=== PATIENT | male | born 1945 | race Caucasian/White ===

== ENCOUNTER 2017-03-01 09:59 | Day surgery (SDC) | payer MEDICARE ==
[2017-03-01] VITALS (7 sets, daily range): BP systolic 104–130; BP diastolic 62–77; PULSE 60–69; RESP 16; TEMP 97.4–99.1; O2SAT 97–98
[~2017-03-01] VITALS: Ht 167.6 cm; Wt 75.0 kg
[2017-03-01] MEDS ORDERED: ASPI81TA5 PO (10:40)
[2017-03-01] MEDS ORDERED: LISI-515 PO (10:40)
[2017-03-01] MEDS ORDERED: ATOR10TA15 PO (10:40)
[2017-03-01] MEDS ORDERED: LACTATED RINGER'S 1000 ML IV PRN (11:00)
[2017-03-01] MEDS ORDERED: POVIDONE IODINE 5% (ANTISEPSIS KIT) 4 APPLICATIONS EACH NARE PRN (11:00)
[2017-03-01] MEDS ORDERED: SODIUM CHLORID 0.9% 500 ML IV PRN (11:00)
[2017-03-01] MEDS ORDERED: METOPROLOL TARTRATE 25 MG TAB PO PRN (11:00)
[2017-03-01] MEDS: NS 1000 ML IV SCH (11:00)
[2017-03-01] MEDS ORDERED: NO Heparin, Lovenox, Coumadin at least 12 hours prior to procedure. PRN (11:00)
[2017-03-01] MEDS ORDERED: Hold AM Insulin & AM Hypoglycemic medications in diabetic patients PRN (11:00)
[2017-03-01] MEDS ORDERED: VANCOMYCIN 1000 MG/NS 250 ML IV SCH ×2 (11:00)
[2017-03-01] MEDS ORDERED: MUPIROCIN 2% OINT 1 APPLIC/GM SYR NASAL SCH (11:00)
[2017-03-01] MEDS ORDERED: POVIDONE IODINE 5% (ANTISEPSIS KIT) 4 APPLICATIONS EACH NARE SCH (11:00)
[2017-03-01] MEDS ORDERED: CHLORHEXIDINE GLUCONATE 2 % 1 PACK (2 CLOTHS) TOPICAL SCH (11:00)
[2017-03-01] MEDS ORDERED: CHLORHEXIDINE GLUCONATE 2 % 1 PACK (2 CLOTHS) TOPICAL PRN (11:00)
[2017-03-01] MEDS ORDERED: INSULIN HUMAN REGULAR 1,000 UNITS/10 ML VIAL SQ PRN (11:00)
[2017-03-01] MEDS ORDERED: ceFAZolin 2 GM PREMIX 50 ML IV SCH (11:00)
[2017-03-01 11:06] LABS: AUTOMATED NEUTROPHIL # 5.5 TH/MM3 (1.8-7.7); BASOPHIL % 0.6 % (0.0-2.0); EOSINOPHIL # 0.2 TH/MM3 (0-0.4); EOSINOPHIL % 2.6 % (0.0-4.0); HEMATOCRIT 44.3 % (39.0-51.0); HEMO FLAGS DIFF FINAL; LYMPH % 22.7 % (9.0-44.0); LYMPHOCYTE # 1.9 TH/MM3 (1.0-4.8); MEAN CELL VOLUME 89.7 FL (80.0-100.0); MEAN CORPUSCULAR HEMOGLOBIN 30.3 PG (27.0-34.0); MEAN CORPUSCULAR HGB CONC 33.7 % (32.0-36.0); NEUT % 66.1 % (16.0-70.0); PLATELET COUNT 170 TH/MM3 (150-450); RED BLOOD COUNT 4.94 MIL/MM3 (4.50-5.90); RED CELL DISTRIBUTION WIDTH 13.4 % (11.6-17.2); WHITE BLOOD COUNT 8.2 TH/MM3 (4.0-11.0)
[2017-03-01 11:16] LABS: INTERNATIONAL NORMALIZED RATIO 0.9 RATIO; PROTHROMBIN TIME - PATIENT 10.4 SEC (9.8-11.6)
[2017-03-01 11:22] LABS: BICARBONATE 28.1 MEQ/L (21.0-32.0)
[2017-03-01] MEDS ORDERED: MIDAZOLAM HCL 2 MG/2 ML VIAL ONE (12:48)
[2017-03-01] MEDS ORDERED: PROPOFOL 200 MG/20 ML AMP IV ONE (13:18)
[2017-03-01] MEDS ORDERED: VANCOMYCIN 500 MG VIAL ONE (13:31)
[2017-03-01] MEDS ORDERED: LIDOCAINE HCL 2% 50 ML VIAL ONE (13:31)
--- NOTE | 2017-03-01 15:22 | CATHPROC ---
[place] HIS Report Study Information Study Number Admission Scheduled Start Study Start [id number] Mar 01 2017 9:59AM 03/01/2017 Mar 01 2017 12:45PM [place] Service Cardiac Pacer/ICD Admit Source Facility Department Other [facility] Physician and Clinical Staff Initial MD Covarrubias, Cammie Sandstone Inspector Repairer Bella Moreno RCIS Other Anesthesia, CIVIL DESIGN TECHNICIAN Recorder Dee Bowie,RN Scrub Reagan, Kati,TURNER AND FORMER AUTOMATIC TECH2 Procedures Performed Procedure Lead Insertion Equipment Time Family Preservation Worker Description Size Mfg Part Number Used/Scraped 14:36 Design A MEDICAL DRAPE, [place] X-RAY 12X17 12X17 D-100 *[id number] Used 14:21 ANGIO-DYNAMICS LEAD, TENDRIL MRI 46CM [id number] Used MPIS-502-10.0- INTRODUCER SET, 14:36 [employer]. FR 5 SC-NT-U-SST Used MICROPUNCTURE, STIFFENED *[id number] MPIS-502-10.0- INTRODUCER SET, 14:36 [employer]. FR 5 SC-NT-U-SST Used MICROPUNCTURE, STIFFENED *[id number] 14:36 Odeeo DRAPE, IOBAN 2 [id number] 26cm x 20cm Used *[id number] TP-1103 14:36 Odeeo SUTURE, STRIP PLUS 1/2" * Used *[id number] 14:36 MEDLINE PACER ADHESIVE, MASTISOL 2/3CC 2/3CC 0523-48 Used 14:36 MEDLINE PACER LEA, LIMB * 2530 *[id number] Used [id number] 14:36 MEDLINE PACER PACK, PACER CUSTOM * Used *[id number] 14:36 MEDLINE PACER PEN, SKIN DUAL W/ RULER * Used *[id number] 13:50 Celergo PACER SAFE SHEATH, FR8, 13CM FR 8 [id number] Used 13:50 [employer] MEDICAL PACER SAFE SHEATH, FR8, 13CM FR 8 CLS-1008 Used PROBE COVER, STERILE [id number] 14:36 [employer] MEDICAL * Used ULTRASOUND W/ GEL *[id number] 13:46 Needle Sponge Count 2 22 Used 13:51 Needle Sponge Count 30 1 Used 13:51 Needle Sponge Count 5 5 Used [id number] *[id number] SUTURE, 0 ETHIBOND [CT1] (CX21D), 8pk SUTURE, 2-0 VICRYL [CT1] (YQS648Y) SUTURE, 2-0 VICRYL [CT1] ([id number]) SUTURE, 4-0 VICRYL [PS2] (OSU655K) [id number] 14:36 [employer]ET,WARM AIR CCL * Used *[id number] LEAD, TENDRIL ACTIVE FIXATION 14:33 [employer] 52CM [id number] Used BIPOLAR PACEMAKER, JEM MENDEZ 14:54 [employer] [id number] Used MRI [facility] PAD, ELECTROSURGICAL 14:36 * [id number] *[id number] Used SURGICAL GROUNDING ORANGE 2503-3432 14:36 [employer] REGINALDO. ELECTRODE, PRO-PADZ BIPHASIC * Used *91745 Equipment Model, Serial, Lot Number and Expiration Data Description Model Number Serial Number Lot Number Expiration Date LEAD, TENDRIL ACTIVE FIXATION [id number] 52CM [id number] 06-15-2017 BIPOLAR LEAD, TENDRIL MRI [id number] 46CM [id number] 06-15-2017 PACEMAKER, JEM ROWLAND RF MRI [id number] 08-16-2018 Medication Medication Total Dose (Bolus/Oral) Medication Total Dosage/Unit 2% XYLOCAINE 50 mL Medications (Bolus/Oral) Medication Time Given Dosage/Unit Administered By Reason 2% XYLOCAINE 03/01/2017 2:08:00 PM 50 mL Cammie Covarrubias 50 mL 2% XYLOCAINE given in lab by Cammie Covarrubias in Right shoulder via Subcutaneous. Ordered by Cammie Celaya. RT UPPER CHEST Medication (Drip) Medication Time Given Dosage/Unit Concentration/Unit Diluent (ml) Solution ANCEF 03/01/2017 1:22:00 PM 2 g 2 g ANCEF given in lab by Anesthesia, CIVIL DESIGN TECHNICIAN in Left Antecubital via Peripheral IV. Ordered by Cammie Covarrubias. VANCOMYCIN DRIP 03/01/2017 1:22:50 PM 1 g 1 g VANCOMYCIN DRIP given in lab by Anesthesia, CIVIL DESIGN TECHNICIAN in Right Antecubital via Peripheral IV. Ordered by Cammie Covarrubias. Initial Case Assessment Cardiovascular HR Rhythm NIBP Chest Pain 76 SR 128/72 0 Edema Present Skin color Skin None Normal Warm Dry Circulatory - Right Pulses Dorsalis Pedis 1 Scale (0,1,2,3,4,d) Circulatory - Left Pulses Dorsalis Pedis 1 Scale (0,1,2,3,4,d) Neurological State Oriented to time-place- Alert Moves all extremities person Respiration - General Respiration Rate SpO2 (%) (B/min) 18 98 Final Case Assessment Cardiovascular HR Rhythm NIBP Chest Pain 76 SR 106/72 0 Edema Present Skin color Skin None Normal Warm Dry Circulatory - Right Pulses Dorsalis Pedis 1 Scale (0,1,2,3,4,d) Circulatory - Left Pulses Dorsalis Pedis 1 Scale (0,1,2,3,4,d) Neurological State Oriented to time-place- Alert Moves all extremities person Respiration - General Respiration Rate SpO2 (%) O2 (lpm) (B/min) 18 100 2 Chronological Log Time Study Chronological Log 13:08:00 Patient arrived via Bed. 13:08:10 Patient Name, D.O.B, / Armband Verified By R.N. Verbal Stimulation=~VERBAL~ Physical Stimulation=~PHYSICAL~ Airway=~AIRWAY~ Respiration=~RESPIR ATION~ 13:08:15 TOTAL=~TOTAL~. (0=absent, 1=limited, 2=present) Anesthesia at bedside. Assumes care of patient. LINDSAY munoz RECORDS FOR ALL MEDS AND VITALS DU RING 13:08:50 PROCEDURE 13:10:12 Patient has been NPO for More than 6Hrs. 13:11:00 Skin Breakdown- NONE PER PATIENT 13:12:00 Patient Warmer Placed on the Table. 13:12:20 Disposable Defibrillator Pads Placed On Patient. 13:13:05 Abdulaziz Prominences Protected 13:15:00 A # 20 IV was noted in the Antecubital (right). Grade = 0 13:15:01 A # 20 IV was noted in the Antecubital (left). Grade = 0 13:15:10 History and physical on the chart or being dictated. 13:22:00 2 g ANCEF given in lab by Anesthesia, CIVIL DESIGN TECHNICIAN in Left Antecubital via Peripheral IV. Ordered b y Cammie Covarrubias. 1 g VANCOMYCIN DRIP given in lab by Anesthesia, CIVIL DESIGN TECHNICIAN in Right Antecubital via Peripheral IV. Or dered by Marci, 13:22:50 Cammie. Assessment: Initial Case, HR=76 BPM, Rhythm=SR, CPSR=853/72 mmhg, Chest Pain=0, Edema=None, Col or=Normal, Skin = Warm, Dry Right Pulses: Henrique Ped=1 13:38:56 Left Pulses: Henrique Ped=1 Neurological: State=Alert, Ox3, THAKUR Respiration: Resp=18 B/min, SpO2=98 % 13:40:01 Right Upper Chest Prepped Times Two. 13:45:18 Reference ECG taken 13:45:28 Bovie ground pad applied to: RIGHT THIGH 13:45:37 2% CHLORHEXIDINE GLUCONATE WASH AND NASAL SWIPE DONE PRIOR TO PROCEDURE. First Sponge And Instrument Count Done by Kati Kirk, TURNER AND FORMER AUTOMATIC TECH2. 13:45:55 Hypo's: 5, Sponges: 30, Bovie/scratch: 2 Sutures: 11, Blades: 2, Instruments: 26, Syveck Patches: 0 VERIFIED BY BELLA Beatty 13:46:21 MD paged 13:51:40 MD responded Time Out. Correct patient, procedure, procedure equipment, site and side verified with physicia n present. Time 14:06:30 concurred by MD, individual staff and CIVIL DESIGN TECHNICIAN. Time Out #2 - Consents verified, patient in correct position, all results are labled and displa yed, safety precautions 14:06:32 taken, antibiotics administered. Time out concurred by MD, individual staff and CIVIL DESIGN TECHNICIAN in procedu re 14:06:33 Case Start 50 mL 2% XYLOCAINE given in lab by Cammie Covarrubias in Right shoulder via Subcutaneous. Ordered by Marci, 14:08:00 Cammie. RT UPPER CHEST 14:09:10 Surgical Incision Made. 14:10:00 A pocket was created at the R Upper Chest. 14:26:11 Vascular access was obtained in the Subclav. Vein (Rt). 14:26:23 A SAFE SHEATH, FR8, 13CM FR 8 was advanced into the Subclav. Vein (Rt) using the Modified S eldinger technique. 14:26:40 A LEAD, TENDRIL ACTIVE FIXATION BIPOLAR 52CM was inserted and positioned in the RV. 14:28:26 Lead placement verified under fluoroscopy 14:36:17 RV LEAD REPOSITIONED 14:37:44 The RV lead impedance and threshold being tested. 14:39:51 The RV lead was sutured to the fascia. 14:49:49 A SAFE SHEATH, FR8, 13CM FR 8 was advanced into the Subclav. Vein (Rt) using the Modified S eldinger technique. 14:53:03 A LEAD, TENDRIL MRI 46CM was inserted and positioned in the RA. 14:53:39 Lead placement verified under fluoroscopy 14:53:43 The Atrial lead impedance and threshold is being tested. 14:54:56 The Atrial lead was sutured to the fascia. 14:55:01 Pocket flushed with antibiotic solution 14:55:31 A PACEMAKER, ASSURITY DR RF MRI was connected and placed in the pocket. SECOND Sponge And Instrument Count Done by Kati Kirk TURNER AND FORMER AUTOMATIC TECH2. 14:58:06 Hypo's: 5, Sponges: 30, Bovie/scratch: 2 Sutures: 11, Blades: 2, Instruments: 26, Syveck Patches: 0 VERIFIED BY BELLA Beatty 15:04:11 The pocket was closed. 15:04:18 Implant Procedure was performed. 15:04:25 A PPM Implant . (Dual) 15:05:39 Case End 15:15:17 Sterile dressing applied to site 15:15:18 No case complications noted. 15:15:19 Cine recording checked. 15:15:20 Bedside Report will be given. 15:15:22 Implantable Device card placed in patient's chart. 15:15:23 DOCU called. Spoke to INÉS 15:15:46 Defibrillator and ground pads removed. Skin intact. Assessment: Final Case, HR=76 BPM, Rhythm=SR, SJWT=091/72 mmhg, Chest Pain=0, Edema=None, Wever r=Normal, Skin = Warm, Dry Right Pulses: Henrique Ped=1 15:16:52 Left Pulses: Henrique Ped=1 Neurological: State=Alert, Ox3, THAKUR Respiration: Resp=18 B/min, MyK4=159 %, O2=2 lpm FINAL Sponge And Instrument Count Done by Kati Kirk, TURNER AND FORMER AUTOMATIC TECH2. 15:18:55 Hypo's: 5, Sponges: 30, Bovie/scratch: 2 Sutures: 11, Blades: 2, Instruments: 26, Syveck Patches: 0 VERIFIED BY BELLA Beatty End Study - Contrast Media Used In Study Contrast Total Opened (mL) Total Used (mL) Total Wasted (mL) Unspecified 0 0 0 End Study - Radiation Exposure Fluoro Time (minutes) 5.3 End Study - Patient Disposition Complications Transferred To Interventional Outcome No Telemetry Bed successful
[2017-03-01] MEDS ORDERED: ACETAMINOPHEN 325 MG TAB PO PRN (15:30)
--- NOTE | 2017-03-01 16:39 | RADRPT ---
EXAM DATE/TIME: 03/01/2017 16:19 [place] COMPARISON: No previous studies available for comparison. INDICATIONS : Chest pain. Evaluate for possible Pneumothorax. MEDICAL HISTORY : None. SURGICAL HISTORY : Pacemaker. ENCOUNTER: Initial ACUITY: 1 day PAIN SCORE: 3/10 LOCATION: Bilateral chest Right side. FINDINGS: A single view of the chest demonstrates the lungs to be symmetrically aerated without evidence of mas s, infiltrate or effusion. The cardiomediastinal contours are unremarkable. Osseous structures are intact. There is a right subclavian AV sequential transvenous pacer in place. There overlying electro cardiogram leads and oxygen tubing. CONCLUSION: No acute disease. There is no pneumothorax. James Guardado MD on March 01, 2017 at 16:36 Board Certified Radiologist. This report was verified electronically.
[2017-03-01] MEDS: ACETAMINOPHEN/CODEINE 300 MG/30 MG TAB PO PRN (18:08)
[2017-03-01] MEDS: ceFAZolin 2 GM PREMIX 50 ML IV SCH (20:18)
[2017-03-02] MEDS ORDERED: VANCOMYCIN INJ 1,000 MG in SODIUM CHLOR 0.9% 250 ML INJ 250 ML IV ONE (01:00)
[2017-03-02 03:00] VITALS: PULSE 69
[2017-03-02 03:30] VITALS: BP 105/64; PULSE 60; RESP 16; TEMP 98.1; O2SAT 97
[2017-03-02 04:21] VITALS: PULSE 62
[2017-03-02] MEDS: ceFAZolin 2 GM PREMIX 50 ML IV SCH (04:44)
--- NOTE | 2017-03-02 06:53 | MR ---
cc: HOA GALVAN DATE 03/01/2017 INDICATIONS Sick sinus syndrome with severe symptomatic bradycardia and syncope. PROCEDURE PERFORMED Placement of St. Satya dual-chamber pacemaker. ACCESS SITE Right subclavian vein EQUIPMENT USED Generator, St. Satya model [id number], MRI compatible dual-chamber pacemaker, serial number [id number]. Right atrial lead is St. Satya model [id number]-33 cm screw-in MRI compatible right atrial lead. Serial number [id number]. Right ventricle lead is St. Satya model 1200M-52 cm screw-in MRI compatible right ventricle lead. Serial number [id number]. LEAD TESTING Right atrial lead: P-wave 2.6 millivolts. Lead impedance 580 ohms. Pacing threshold 0.75 volts at 0.4 milliseconds. Pacing at 10 volts, no diaphragmatic stimulation. Right ventricle lead: R-wave over 12 millivolts. Lead impedance 930 ohms. Pacing threshold 1.0 volts at 0.4 milliseconds. Pacing at 10 volts, no diaphragmatic dilation. PARAMETERS Mode DDD, lower rate 60, upper rate 120. DIAGNOSIS Successful placement of St. Satya MRI compatible dual-chamber pacemaker. DISPOSITION Mr. Martines will be monitored on telemetry after his procedure. We will continue perioperative antibiotics. He will be discharged home tomorrow if stable. I will see him back for a wound check and chronic device reprogramming in our office within two weeks. MD FER Goyal/SALO /3:07 PM /6:39 AM NATALIE
[2017-03-02] MEDS: NS 1000 ML IV SCH (07:23)
[2017-03-02] MEDS: ACETAMINOPHEN/CODEINE 300 MG/30 MG TAB PO PRN (07:46)
[2017-03-02 08:00] VITALS: BP 134/79; PULSE 63; PULSE 70; RESP 18; TEMP 98.1; O2SAT 96
[2017-03-02 08:37] VITALS: RESP 20
--- NOTE | 2017-03-02 08:59 | PD.CARD.PN ---
Subjective Subjective Remarks No CP or SOB, feels fine Objective Medications Current Medications Medications (Trade) Dose Ordered Sig/Odilia Route Start Time Stop Time Status Last Admin Miscellaneous Information Hold AM Insulin & ... UNSCH PRN .XX 03/01/17 11:00 03/05/17 10:59 Miscellaneous Information NO Heparin, Loven... UNSCH PRN .XX 03/01/17 11:00 03/05/17 10:59 Sodium Chloride 1,000 ml @ 30 mls/hr Q24H IV 03/01/17 11:00 Lactated Ringer's 1,000 ml @ 30 mls/hr Q24H PRN IV 03/01/17 11:00 03/04/17 10:59 Sodium Chloride 500 ml @ 30 mls/hr [id number] PRN IV 03/01/17 11:00 03/04/17 10:59 (Ancef 2 Gm Premix) 50 ml @ 100 mls/hr Q8H IV 03/01/17 21:00 03/02/17 13:29 03/02/17 04:44 (Tylenol-Codeine #3) 2 tab Q4H PRN PO 03/01/17 15:30 03/02/17 07:46 (Tylenol) 650 mg Q4H PRN PO 03/01/17 15:30 Vital Signs / I&O Vital Signs Date Time Temp Pulse Resp B/P Pulse Ox O2 Delivery O2 Flow Rate FiO2 03/02/17 08:37 20 03/02/17 08:00 63 03/02/17 08:00 98.1 70 18 134/79 96 03/02/17 04:21 62 03/02/17 03:30 98.1 60 16 105/64 97 03/02/17 03:00 69 03/01/17 23:30 98.2 67 16 104/62 98 03/01/17 23:00 63 03/01/17 19:00 66 03/01/17 19:00 97.4 62 16 126/74 98 03/01/17 18:00 60 03/01/17 17:30 69 03/01/17 17:25 98.2 68 16 127/77 98 03/01/17 16:01 97 Room Air 03/01/17 10:37 99.1 68 16 130/75 97 I/O 03/01/17 03/01/17 03/01/17 03/02/17 03/02/17 03/02/17 06:59 14:59 22:59 06:59 14:59 22:59 Intake Total 240 ml Output Total 400 ml Balance -160 ml Intake Oral 240 ml Output Urine Total 400 ml Physical Exam GENERAL: In NAD SKIN: Warm and dry. HEAD: Normocephalic. EYES: No scleral icterus. No injection or drainage. NECK: Supple, trachea midline. No JVD or lymphadenopathy. CARDIOVASCULAR: Regular rate and rhythm without murmurs, gallops, or rubs. RESPIRATORY: Breath sounds equal bilaterally. No accessory muscle use. GASTROINTESTINAL: Abdomen soft, non-tender, nondistended. MUSCULOSKELETAL: No cyanosis, or edema. Wound stable Laboratory Laboratory Tests Test 03/01/17 10:25 White Blood Count 8.2 TH/MM3 Red Blood Count 4.94 MIL/MM3 Hemoglobin 15.0 GM/DL Hematocrit 44.3 % Mean Corpuscular Volume 89.7 FL Mean Corpuscular Hemoglobin 30.3 PG Mean Corpuscular Hemoglobin 33.7 % Concent Red Cell Distribution Width 13.4 % Platelet Count 170 TH/MM3 Mean Platelet Volume 11.0 FL Neutrophils (%) (Auto) 66.1 % Lymphocytes (%) (Auto) 22.7 % Monocytes (%) (Auto) 8.0 % Eosinophils (%) (Auto) 2.6 % Basophils (%) (Auto) 0.6 % Neutrophils # (Auto) 5.5 TH/MM3 Lymphocytes # (Auto) 1.9 TH/MM3 Monocytes # (Auto) 0.7 TH/MM3 Eosinophils # (Auto) 0.2 TH/MM3 Basophils # (Auto) 0.0 TH/MM3 CBC Comment DIFF FINAL Differential Comment Prothrombin Time 10.4 SEC Prothromb Time International 0.9 RATIO Ratio Activated Partial 27.0 SEC Thromboplast Time Sodium Level 138 MEQ/L Potassium Level 4.0 MEQ/L Chloride Level 105 MEQ/L Carbon Dioxide Level 28.1 MEQ/L Anion Gap 5 MEQ/L Blood Urea Nitrogen 15 MG/DL Creatinine 1.11 MG/DL Estimat Glomerular Filtration 66 ML/MIN Rate Random Glucose 112 MG/DL Calcium Level 9.1 MG/DL Imaging Last Impressions Chest X-Ray 03/01/17 0000 Signed Impressions: Service Date/Time: Wednesday, March 01, 2017 16:19 - CONCLUSION: No acute disease. There is no pneumothorax. James Guardado MD Assessment and Plan Problem List: (1) SSS (sick sinus syndrome) (2) Pacemaker Assessment and Plan Normal pacer fx. Wound stable. DC home. F/u within 2 weeks. Cammie Covarrubias MD Mar 02, 2017 08:59
--- NOTE | 2017-03-02 09:25 | EKG ---
Date Performed: 03/01/2017 Time Performed: 10:48:32 PTAGE: 71 years EKG: Sinus bradycardia Inferior infarct - age undetermined Abnormal ECG NO PREVIOUS TRACING DOCTOR: Marty Hudson Interpretating Date/Time 03/02/2017 09:11:24
== END 2017-03-02 10:00 | disposition home or self-care (01) ==
LOC: HDOC 09:59 → HDIC 10:00 → HCIN 17:56 → HDOC 03-02 10:00
PROVIDERS: ATTEND Internal Medicine Interventional Cardiology
DX: I49.5 Sick sinus syndrome (principal); I12.9 Hypertensive chronic kidney disease with stage 1 through stage 4 chronic kidney disease, or unspecified chronic kidney disease; N18.9 Chronic kidney disease, unspecified; E78.5 Hyperlipidemia, unspecified; I73.9 Peripheral vascular disease, unspecified
CPT/HCPCS: 00530; 33208; 71010; 80048; 85025; 85610; 85730; 93005; C1785; C1898; J0690; J2250; J3370; J7050